=== PATIENT | male | born 2000 | race Two or more races ===

== ENCOUNTER 2022-01-09 03:41 | Emergency (ER) | payer MEDICAID, OTHER ==
[~2022-01-09] VITALS: Ht 165.1 cm; Wt 63.5 kg
--- NOTE | 2022-01-09 03:55 | NUR ---
BIBRA60. TO ER BED 13. AAOX4. NOT IN RESP DISTRESS. AMBULATORY. PT ADMITS TO SMOKING METH AND IS NOW PARANOID. DENIES SUICIDAL IDEATION. WAS AT THE BEDSIDE.
--- NOTE | 2022-01-09 04:50 | NUR ---
PT REQUESTING TO BE DISCHARGED. DR BARILLAS NOTIFIED.
--- NOTE | 2022-01-09 04:58 | NUR ---
PT OK TO BE DISCHARGED PER DR BARILLAS. Patient discharged to home in stable condition. Written and verbal after care instructions given. Patient verbalizes understanding of instruction. PT ambulatory with a steady gait
[2022-01-09 05:03] VITALS: BP 129/77
== END 2022-01-09 05:04 | disposition home or self-care (01) ==
LOC: ER 03:42
DX: F15.10 Other stimulant abuse, uncomplicated (principal)